=== PATIENT | male | born 1945 | race Hispanic/Latino ===

== ENCOUNTER 2017-12-30 22:24 | Inpatient (IN) | payer MEDICARE ==
[2017-12-30 22:25] VITALS: BMI 25.0
[2017-12-30] MEDS ORDERED: Sodium Chloride 0.9% 1,000 ML IV STA (23:44)
--- NOTE | 2017-12-30 23:50 | C.PDOC ---
History Of Present Illness 72 year old male with a PMHx of CAD s/p CABG presents to the ER after having two syncopal episodes today. Patient states he had two episodes in which he had mild headache with tingling in his toes and blacking out. He denies fall or trauma during either time as well as symptoms of chest pain, SOB, nausea, vomiting, or bloody/black stools. Patient has a Hx of LOC years ago after which he underwent CABG. PMD is Dr. 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 Time Seen by Provider: 12/30/17 23:07 Chief Complaint (Nursing): Headache History Per: Patient History/Exam Limitations: no limitations Onset/Duration Of Symptoms: Hrs Current Symptoms Are (Timing): Still Present Recent travel outside of the [place]: No Past Medical History Reviewed: Historical Data, Nursing Documentation, Vital Signs Vital Signs: Last Vital Signs Temp 97.8 F 12/30/17 22:37 Pulse 61 12/30/17 22:37 Resp 18 12/30/17 22:37 BP 169/91 H 12/30/17 22:37 Pulse Ox 99 12/30/17 22:37 - Medical History PMH: CAD Surgical History: CABG (12 YEARS AGO) - [facility] Procedures CORONAR ARTERIOGR-2 CATH (10/18/12) LEFT HEART CARDIAC CATH (10/18/12) LT HEART ANGIOCARDIOGRAM (10/18/12) OTH NONOPER CARD AND VASC MEASURE (10/18/12) Family History: States: Unknown Family Hx - Social History Hx Tobacco Use: No Hx Alcohol Use: No Hx Substance Use: No Review Of Systems Except As Marked, All Systems Reviewed And Found Negative. Neurological: Positive for: Headache, Other (Tingling to toes, Syncope) Physical Exam - Physical Exam Additional Physical Exam Comments: Constitutional: No acute distress. Head: Normocephalic. Atraumatic. Eyes: PERRL. ENT: Moist mucous membranes. Neck: Supple. Cardiovascular: Regular rate. Radial pulse 2+ bilaterally. Chest: No tenderness. Respiratory: Clear to auscultation bilaterally. GI: Soft. Nontender. Nondistended. Back: No CVA tenderness. Musculoskeletal: No tenderness or swelling of extremities. Skin: Midline sternotomy scar. Neurologic: Alert, no focal deficit. ED Course And Treatment - Laboratory Results Result Diagrams: 12/31/17 00:18 12/31/17 00:18 O2 Sat by Pulse Oximetry: 99 (Room air) Pulse Ox Interpretation: Normal Medical Decision Making Medical Decision Making: EKG: NSR 60, no ST elevation CXR no acute disease. Trop negative. Dr. Johnson covering for Dr. Hazel accepts patient to his service. Disposition - Disposition Disposition: HOSPITALIZED Disposition Time: 01:25 Condition: GUARDED Forms: [facility] (Sing[place]an) - Clinical Impression Clinical Impression: Syncope, Hx of CABG - Scribe Statement The provider has reviewed the documentation as recorded by the Scribe Neo Boothe All medical record entries made by the Scribe were at my direction and personally dictated by me. I have reviewed the chart and agree that the record accurately reflects my personal performance of the history, physical exam, medical decision making, and the department course for this patient. I have also personally directed, reviewed, and agree with the discharge instructions and disposition.
[2017-12-31 00:25] LABS: BASO % 0.4 % (0.0-2.0); EOS % 0.2 % (0.0-4.0); HEMOGLOBIN 13.1 g/dL (12.0-18.0); LYMPH # 1.1 K/uL (1.0-4.3); LYMPH % 13.5 % (20.0-40.0); MEAN CORPUSCULAR HEMOGLOBIN 30.6 pg (27.0-31.0); MEAN PLATELET VOLUME 8.8 fL (7.2-11.7); MONO # 0.4 K/uL (0.0-0.8); MONO % 4.7 % (0.0-10.0); NEUT # 6.5 K/uL (1.8-7.0); NEUT % 81.2 % (50.0-75.0); NRBC % 0.1 % (0.0-2.0); RBC 4.27 Mil/uL (4.40-5.90); RED CELL DISTRIBUTION WIDTH 14.8 % (11.5-14.5); WHITE BLOOD COUNT 7.9 K/uL (4.8-10.8)
[2017-12-31 00:41] LABS: ALB/GLOB RATIO 1.4 (1.0-2.1); ALBUMIN 4.1 g/dL (3.5-5.0); ALT/SGPT 27 U/L (21-72); AST/SGOT 27 U/L (17-59); BLOOD UREA NITROGEN 19 mg/dL (9-20); CALCIUM 9.4 mg/dl (8.6-10.4); GFR NON-AFRICAN AMERICAN > 60
[2017-12-31 00:53] LABS: CK-MB 3.16 ng/mL (0.0-3.38)
--- NOTE | 2017-12-31 08:39 | RAD ---
Date of service: 12/31/2017 HISTORY: r/o PNA COMPARISON: Chest radiographs 06/21/2013. FINDINGS: LUNGS: No acute pulmonary disease. Pleural or parenchymal calcifications are reiterated the mid to inferior left hemithorax laterally. PLEURA: No significant pleural effusion identified, no pneumothorax apparent. CARDIOVASCULAR: Cardiomegaly appears stable. No pulmonary vascular congestion. Post CABG changes are again identified including sternotomy wires and mediastinal surgical clips. Aortic arch atherosclerotic calcifications noted. OSSEOUS STRUCTURES: No significant abnormalities. VISUALIZED UPPER ABDOMEN: Normal. OTHER FINDINGS: None. IMPRESSION: No interval acute cardiopulmonary disease appreciable. Stable cardiomegaly. No pulmonary vascular congestion.
--- NOTE | 2017-12-31 09:59 | CP.PCM.CON ---
History of Present Illness - History of Present Illness History of Present Illness: Very pleasant and active gentleman who reports that he has occasional episodes (2x per year) of short lasting (days) of dizziness and SHORT. 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 He feels pre-syncope but h as never had LOC, fall or trauma. denies: palpitation, CP, diaphoresis, leg edema, SOB, fevers, chills or visual complaints. denies: change in eating habits, URI sx's Reports episode of L. 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 Past Patient History - Infectious Disease Hx of Infectious Diseases: None - Past Medical History & Family History Past Medical History?: Yes - Past Social History Smoking Status: Never Smoked - MUSCULOSKELETAL/RHEUMATOLOGICAL Hx Falls: No - PSYCHIATRIC Hx Substance Use: No - SURGICAL HISTORY Hx Coronary Artery Bypass Graft: Yes (12 YEARS AGO) - ANESTHESIA Hx Anesthesia: Yes Hx Anesthesia Reactions: No Meds Allergies/Adverse Reactions: Allergies Allergy/AdvReac Type Severity Reaction Status Date / Time No Known Allergies Allergy Verified 12/30/17 22:43 - Medications Medications: Current Medications Aspirin (Aspirin) 325 mg PO DAILY [facility] Clopidogrel Bisulfate (Plavix) 75 mg PO DAILY [facility] Enoxaparin Sodium (Lovenox) 40 mg SC DAILY [facility] Famotidine (Pepcid) 20 mg PO BID [facility] Sodium Chloride (Sodium Chloride 0.9%) 1,000 mls @ 75 mls/hr IV .[id number] STA Stop: 12/31/17 13:03 Last Admin: 12/31/17 00:30 Dose: 75 mls/hr Physical Exam - Constitutional Appears: No Acute Distress - Head Exam Head Exam: ATRAUMATIC, NORMAL INSPECTION, NORMOCEPHALIC - Eye Exam Eye Exam: EOMI, Normal appearance, PERRL - ENT Exam ENT Exam: Mucous Membranes Moist, Normal Oropharynx - Respiratory Exam Respiratory Exam: Clear to Auscultation Bilateral, NORMAL BREATHING PATTERN. absent: Rhonchi, Wheezes - Cardiovascular Exam Cardiovascular Exam: REGULAR RHYTHM, +S1, +S2. absent: Gallop, +S4, Systolic Murmur - GI/Abdominal Exam GI & Abdominal Exam: Normal Bowel Sounds, Soft. absent: Tenderness - Extremities Exam Extremities exam: Positive for: normal inspection, pedal pulses present. Negative for: calf tenderness, pedal edema - Back Exam Back exam: absent: CVA tenderness (L), CVA tenderness (R) - Neurological Exam Neurological exam: Alert, CN II-XII Intact, Oriented x3 - Psychiatric Exam Psychiatric exam: Normal Affect, Normal Mood - Skin Skin Exam: Normal Color, Warm Results - Vital Signs Recent Vital Signs: Last Vital Signs Temp 98.6 F 12/31/17 07:00 Pulse 97 H 12/31/17 07:00 Resp 18 12/31/17 07:00 BP 114/77 12/31/17 07:00 Pulse Ox 96 12/31/17 07:00 - Labs Result Diagrams: 12/31/17 00:18 12/31/17 00:18 Labs: Laboratory Results - last 24 hr 12/31/17 12/31/17 00:18 00:18 WBC 7.9 RBC 4.27 L Hgb 13.1 Hct 38.4 MCV 90.0 MCH 30.6 MCHC 34.0 RDW 14.8 H Plt Count 193 MPV 8.8 Neut % (Auto) 81.2 H Lymph % (Auto) 13.5 L [place] % (Auto) 4.7 Eos % (Auto) 0.2 Baso % (Auto) 0.4 Neut # (Auto) 6.5 Lymph # (Auto) 1.1 [place] # (Auto) 0.4 Eos # (Auto) 0.0 Baso # (Auto) 0.0 Sodium 139 Potassium 3.8 Chloride 105 Carbon Dioxide 25 Anion Gap 12 BUN 19 Creatinine 0.8 Est GFR ( Amer) > 60 Est GFR (Non-Af Amer) > 60 Random Glucose 121 H Calcium 9.4 Total Bilirubin 0.5 AST 27 ALT 27 Alkaline Phosphatase 69 Total Creatine Kinase 183 H CK-MB (Mass) 3.16 Troponin I < 0.0120 Total Protein 7.0 Albumin 4.1 Globulin 2.9 Albumin/Globulin Ratio 1.4 - EKG Data EKG Interpreted by: Myself EKG shows normal: Sinus rhythm Assessment & Plan - Assessment and Plan (Free Text) Assessment: Acute problems: :: Dizziness Symptoms lack characteristics for arrythmia or cardiac illness, possible dehydration, vertigo Will order: echo to evaluate cardiac structure and function hydration, DVT prophylaxis, PT to assess gait Can consider neuro eval. Consider carotid doppler :: CAD - Hx of CABG 2005 - images reviewed by me: EKG; NSR, no acute ischemic changes - troponin initial negative, no concern for angina, active CAD or systolic HF - f/u echo to eval cardiac structure and function Add statin i.e crestor 10 for now, titrate for LDL near 70 cont ASA :: HTN - No chronic hx reported - BP is mod/high - suggest Losartan 25-50 mg daily and re-eval need for additional
[2017-12-31 11:26] LABS: BASO % 0.3 % (0.0-2.0); EOS % 0.3 % (0.0-4.0); LYMPH # 1.7 K/uL (1.0-4.3); MEAN CORPUSCULAR HEMOGLOBIN 30.2 pg (27.0-31.0); MEAN CORPUSCULAR HGB CONC 33.6 g/dL (33.0-37.0); MEAN PLATELET VOLUME 8.8 fL (7.2-11.7); MONO # 0.4 K/uL (0.0-0.8); MONO % 5.7 % (0.0-10.0); NEUT # 5.4 K/uL (1.8-7.0); NEUT % 70.7 % (50.0-75.0); RBC 4.29 Mil/uL (4.40-5.90); RED CELL DISTRIBUTION WIDTH 15.1 % (11.5-14.5); WHITE BLOOD COUNT 7.6 K/uL (4.8-10.8)
[2017-12-31] MEDS: Enoxaparin 40 mg Syringe SC SCH (12:24)
--- NOTE | 2017-12-31 17:50 | CP.PCM.HP ---
Past Patient History - Infectious Disease Hx of Infectious Diseases: None - Past Medical History & Family History Past Medical History?: Yes - Past Social History Smoking Status: Never Smoked - CARDIAC Hx Cardiac Disorders: Yes (CAD) - MUSCULOSKELETAL/RHEUMATOLOGICAL Hx Falls: No - PSYCHIATRIC Hx Substance Use: No - SURGICAL HISTORY Hx Coronary Artery Bypass Graft: Yes (12 YEARS AGO) - ANESTHESIA Hx Anesthesia: Yes Hx Anesthesia Reactions: No Meds Allergies/Adverse Reactions: Allergies Allergy/AdvReac Type Severity Reaction Status Date / Time No Known Allergies Allergy Verified 12/30/17 22:43 Physical Exam - Constitutional Appears: Well - Head Exam Head Exam: ATRAUMATIC, NORMAL INSPECTION, NORMOCEPHALIC - Eye Exam Eye Exam: EOMI, Normal appearance, PERRL Pupil Exam: NORMAL ACCOMODATION, PERRL - ENT Exam ENT Exam: Mucous Membranes Moist, Normal Exam - Neck Exam Neck exam: Positive for: Normal Inspection - Respiratory Exam Respiratory Exam: Decreased Breath Sounds - Cardiovascular Exam Cardiovascular Exam: REGULAR RHYTHM, +S1, +S2 - GI/Abdominal Exam GI & Abdominal Exam: Diminished Bowel Sounds, Soft - Rectal Exam Rectal Exam: Deferred Results - Vital Signs Recent Vital Signs: Last Vital Signs Temp 98.1 F 12/31/17 15:00 Pulse 63 12/31/17 15:00 Resp 20 12/31/17 15:00 BP 161/68 H 12/31/17 15:00 Pulse Ox 97 12/31/17 15:00 - Labs Result Diagrams: 12/31/17 11:12 12/31/17 00:18 Labs: Laboratory Results - last 24 hr 12/31/17 12/31/17 12/31/17 00:18 00:18 11:12 WBC 7.9 RBC 4.27 L Hgb 13.1 Hct 38.4 MCV 90.0 MCH 30.6 MCHC 34.0 RDW 14.8 H Plt Count 193 MPV 8.8 Neut % (Auto) 81.2 H Lymph % (Auto) 13.5 L [place] % (Auto) 4.7 Eos % (Auto) 0.2 Baso % (Auto) 0.4 Neut # (Auto) 6.5 Lymph # (Auto) 1.1 [place] # (Auto) 0.4 Eos # (Auto) 0.0 Baso # (Auto) 0.0 Sodium 139 Potassium 3.8 Chloride 105 Carbon Dioxide 25 Anion Gap 12 BUN 19 Creatinine 0.8 Est GFR ( Amer) > 60 Est GFR (Non-Af Amer) > 60 Random Glucose 121 H Calcium 9.4 Total Bilirubin 0.5 AST 27 ALT 27 Alkaline Phosphatase 69 Total Creatine Kinase 183 H CK-MB (Mass) 3.16 Troponin I < 0.0120 < 0.0120 Total Protein 7.0 Albumin 4.1 Globulin 2.9 Albumin/Globulin Ratio 1.4 12/31/17 11:12 WBC 7.6 RBC 4.29 L Hgb 13.0 Hct 38.6 MCV 90.0 MCH 30.2 MCHC 33.6 RDW 15.1 H Plt Count 201 MPV 8.8 Neut % (Auto) 70.7 Lymph % (Auto) 23.0 [place] % (Auto) 5.7 Eos % (Auto) 0.3 Baso % (Auto) 0.3 Neut # (Auto) 5.4 Lymph # (Auto) 1.7 [place] # (Auto) 0.4 Eos # (Auto) 0.0 Baso # (Auto) 0.0 Sodium Potassium Chloride Carbon Dioxide Anion Gap BUN Creatinine Est GFR ( Amer) Est GFR (Non-Af Amer) Random Glucose Calcium Total Bilirubin AST ALT Alkaline Phosphatase Total Creatine Kinase CK-MB (Mass) Troponin I Total Protein Albumin Globulin Albumin/Globulin Ratio
--- NOTE | 2017-12-31 21:04 | CARD ---
APPROVED REPORT Date of service: 12/31/2017 EXAM: Two-dimensional and M-mode echocardiogram with Doppler and color Doppler. Other Information Quality : GoodRhythm : INDICATION Dizziness and Vertigo Cardiac Disease: CAD Syncope 2D DIMENSIONS IVSd1.3 (0.7-1.1cm)LVDd5.6 (3.9-5.9cm) PWd1.1 (0.7-1.1cm)LA Kejwqg51 (18-58mL) LVDs3.9 (2.5-4.0cm)FS (%) 29.7 % LVEF (%)56.2 (>50%)LVEF (Faith's)52.46 % M-Mode DIMENSIONS Left Atrium (MM)4.31 (2.5-4.0cm)IVSd1.09 (0.7-1.1cm) Aortic Root3.54 (2.2-3.7cm)LVDd5.89 (4.0-5.6cm) Aortic Cusp Exc.2.03 (1.5-2.0cm)PWd1.05 (0.7-1.1cm) FS (%) 32 %LVDs4.03 (2.0-3.8cm) LVEF (%)59 (>50%) Mitral Valve MV E Vclkqzph92.5cm/sMV A Vncxroyr13.5cm/sE/A ratio0.8 TDI Lateral E' Peak V5.25cm/sMedial E' Peak V5.19cm/sE/Lateral E'12.9 E/Medial E'13.0 Tricuspid Valve TR Peak [id number]/sTR Peak Gr.94huIkJQHI27ycEw LEFT VENTRICLE The left ventricle is normal size. There is normal left ventricular wall thickness. The left ventricular function is normal. The left ventricular ejection fraction is within the normal range. There is normal LV segmental wall motion. Transmitral Doppler flow pattern is abnormal. RIGHT VENTRICLE The right ventricle is normal size. ATRIA The left atrium is mildly dilated. The right atrium size is normal. AORTIC VALVE There is trace aortic regurgitation. MITRAL VALVE Mitral regurgitation is mild. TRICUSPID VALVE There is mild tricuspid regurgitation. <Conclusion> Normal LV systolic fucntion. Diastolic dysfucntion. Dilated LA. Trace AR. Mild MR. Mild TR.
[2018-01-01 07:11] LABS: TROPONIN I 0.019 ng/mL (0.00-0.120)
--- NOTE | 2018-01-01 07:17 | CP.PCM.CON ---
History of Present Illness - History of Present Illness History of Present Illness: CONSULT DICTATED MULTIPLE EPISODE OF SYNCOPE >5 TIMES IN HIS LIFE TIME ALL SYMPTOMS ASSOCIATING WITH AURA POST EVENT CONFUSION ?? PARTIAL COMPLEX WITH GENERALIZATION SEIZURE MRI BRAIN /EEG/ CAROTID BLOOD WORK UP PER ORDER Sz PRECAUTION NEEDS AVEEG AN OP. Past Patient History - Infectious Disease Hx of Infectious Diseases: None - Past Medical History & Family History Past Medical History?: Yes - Past Social History Smoking Status: Never Smoked - CARDIAC Hx Cardiac Disorders: Yes (CAD) - MUSCULOSKELETAL/RHEUMATOLOGICAL Hx Falls: No - PSYCHIATRIC Hx Substance Use: No - SURGICAL HISTORY Hx Coronary Artery Bypass Graft: Yes (12 YEARS AGO) - ANESTHESIA Hx Anesthesia: Yes Hx Anesthesia Reactions: No Meds Allergies/Adverse Reactions: Allergies Allergy/AdvReac Type Severity Reaction Status Date / Time No Known Allergies Allergy Verified 12/30/17 22:43 - Medications Medications: Current Medications Aspirin (Aspirin) 325 mg PO DAILY ON LICENSE OF [facility] Last Admin: 12/31/17 12:24 Dose: 325 mg Clopidogrel Bisulfate (Plavix) 75 mg PO DAILY ON LICENSE OF [facility] Last Admin: 12/31/17 12:24 Dose: 75 mg Enoxaparin Sodium (Lovenox) 40 mg SC DAILY ON LICENSE OF [facility] Last Admin: 12/31/17 12:24 Dose: 40 mg Famotidine (Pepcid) 20 mg PO BID ON LICENSE OF [facility] Last Admin: 12/31/17 18:07 Dose: 20 mg Results - Vital Signs Recent Vital Signs: Last Vital Signs Temp 97.6 F 01/01/18 05:18 Pulse 66 01/01/18 05:18 Resp 20 01/01/18 05:18 BP 144/74 01/01/18 05:18 Pulse Ox 96 01/01/18 05:18 - Labs Result Diagrams: 12/31/17 11:12 12/31/17 00:18 Labs: Laboratory Results - last 24 hr 12/31/17 12/31/17 01/01/18 11:12 11:12 06:31 WBC 7.6 RBC 4.29 L Hgb 13.0 Hct 38.6 MCV 90.0 MCH 30.2 MCHC 33.6 RDW 15.1 H Plt Count 201 MPV 8.8 Neut % (Auto) 70.7 Lymph % (Auto) 23.0 [place] % (Auto) 5.7 Eos % (Auto) 0.3 Baso % (Auto) 0.3 Neut # (Auto) 5.4 Lymph # (Auto) 1.7 [place] # (Auto) 0.4 Eos # (Auto) 0.0 Baso # (Auto) 0.0 Troponin I < 0.0120 0.0190
[2018-01-01 09:00] LABS: PROLACTIN 35.8 ng/mL (3.7-17.9)
[2018-01-01] MEDS: Enoxaparin 40 mg Syringe SC SCH (09:06)
[2018-01-01 12:14] LABS: FREE T4 1.05 ng/dL (0.78-2.19)
--- NOTE | 2018-01-01 12:21 | VASCLAB ---
Date of service: 01/01/2018 PROCEDURE: Carotid Duplex Exam. HISTORY: stenosis COMPARISON: None available. TECHNIQUE: Grayscale and duplex Doppler evaluation of the cervical carotid and vertebral arteries were performed. The common carotid, carotid bifurcations and cervical Internal Carotid Artery (ICA) and proximal External Carotid Artery (ECA) were evaluated. The vertebral arteries were evaluated for gross patency and flow direction. Report prepared by agricultural engineering technologist. FINDINGS: RIGHT CAROTID ARTERIES: 1. Common Carotid Artery: No significant focal plaque formation of the right common carotid artery. Maximum Peak Systolic velocity: 96 cm/sec: End-diastolic velocity 19 cm/sec. 2. Carotid Bifurcation: Heterogeneous plaque formation. Maximum Peak Systolic velocity: 100 cm/sec: End-diastolic velocity 21 cm/sec. 3. Internal Carotid Artery: Moderate plaque formation of the right proximal ICA which does not results in hemodynamically significant stenosis. Plaque description: Heterogeneous 3.1. Proximal Segment: Peak systolic velocity 003 cm/sec: End-diastolic velocity 31 cm/sec - % stenosis 0-15% 3.2. Middle Segment: Peak systolic velocity 109 cm/sec: End-diastolic velocity 29 cm/sec - % stenosis 0-15% 3.3. Distal Segment: Peak systolic velocity 111 cm/sec: End-diastolic velocity 31 cm/sec - % stenosis 0-15% 4. External Carotid Artery: No significant focal plaque formation. Peak systolic velocity 186 cm/sec 5. ICA/CCA Ratio: 1.2 LEFT CAROTID ARTERIES: 1. Common Carotid Artery: No significant focal plaque formation of the left common carotid artery. Maximum Peak Systolic velocity: 111 cm/sec: End-diastolic velocity 12 cm/sec. 2. Carotid Bifurcation: Calcific plaque formation. Maximum Peak Systolic velocity: 101 cm/sec: End-diastolic velocity 10 cm/sec. 3. Internal Carotid Artery: Moderate plaque formation of the left proximal ICA which does not results in hemodynamically significant stenosis. Plaque description: Calcific 3.1. Proximal Segment: Peak systolic velocity 130 cm/sec: End-diastolic velocity 18 cm/sec - % stenosis 0-15% 3.2. Middle Segment: Peak systolic velocity 102 cm/sec: End-diastolic velocity 18 cm/sec - % stenosis 0-15% 3.3. Distal Segment: Peak systolic velocity 88 cm/sec: End-diastolic velocity 23 cm/sec - % stenosis 0-15% 4. External Carotid Artery: No significant focal plaque formation. Peak systolic velocity 130 cm/sec 5. ICA/CCA Ratio: 1.2 VERTEBRAL ARTERIES: 1. Right Vertebral Artery: The right vertebral artery flow direction is antegrade. 2. Left Vertebral Artery: The left vertebral artery flow direction is antegrade. OTHER FINDINGS: 1. Right Brachial Blood pressure: 160 mmHg. 2. Left Brachial Blood pressure: 162 mmHg. Impression RIGHT: Duplex scan does not suggest hemodynamically significant stenosis of the right extracranial carotid arteries. LEFT: Duplex scan does not suggest hemodynamically significant stenosis of the left extracranial carotid arteries.
[2018-01-01] MEDS ORDERED: Gadodiamide 287 MG/ML VIAL (15ML) IV ONE (12:51)
--- NOTE | 2018-01-01 14:15 | MRI ---
Date of service: 01/01/2018 PROCEDURE: MRI BRAIN WITH AND WITHOUT CONTRAST HISTORY: attention at mesial temp lobe - vol analysis hippo COMPARISON: Noncontrast head CT from 10/17/2012 her. TECHNIQUE: Multiplanar, multisequence MR images of the brain were obtained with and without intravenous contrast enhancement. 14 mL Omniscan was injected intravenously. FINDINGS: HEMORRHAGE: None DWI: No evidence of an acute or early subacute infarction. BRAIN PARENCHYMA: There are mild chronic microangiopathic changes. There is no mass, mass effect or abnormal extra-axial fluid collection. There is no territorial infarction. The midline sagittal structures are normal. The hippocampi are symmetric, have normal signal intensity without evidence for mesial temporal sclerosis. ENHANCEMENT: No abnormal intracranial enhancement. VENTRICLES: There is mild age-related global parenchymal volume loss and proportionate enlargement of the ventricles and cortical sulci. There are prominent perivascular spaces in the basal ganglia And thalami. CRANIUM: There is normal bone marrow signal pattern. ORBITS: Grossly unremarkable. PARANASAL SINUSES/MASTOIDS: There is mild mucosal thickening in the frontal sinuses and ethmoid air cells. The remaining included paranasal sinuses and mastoid air cells are clear. VASCULAR SYSTEM: There are normal signal voids in the larger intracranial arteries. OTHER FINDINGS: None . IMPRESSION: No acute intracranial abnormality. Mild chronic microangiopathic changes and mild age-related global parenchymal volume loss. No evidence for mesial temporal sclerosis or mass in the medial temporal lobe.
--- NOTE | 2018-01-01 14:34 | CP.PCM.PN ---
Subjective - Date & Time of Evaluation Date of Evaluation: 01/01/18 Time of Evaluation: 14:31 - Subjective Subjective: No further dizziness No CP or SOB Normal gait Objective - Vital Signs/Intake and Output Vital Signs (last 24 hours): Temp Pulse Resp BP Pulse Ox 98.1 F 72 18 171/72 H 98 01/01/18 07:20 01/01/18 11:45 01/01/18 07:20 01/01/18 07:20 01/01/18 07:20 - Medications Medications: Current Medications Aspirin (Aspirin) 325 mg PO DAILY [facility] Last Admin: 01/01/18 09:06 Dose: 325 mg Clopidogrel Bisulfate (Plavix) 75 mg PO DAILY [facility] Last Admin: 01/01/18 09:06 Dose: 75 mg Enoxaparin Sodium (Lovenox) 40 mg SC DAILY [facility] Last Admin: 01/01/18 09:06 Dose: 40 mg Famotidine (Pepcid) 20 mg PO BID [facility] Last Admin: 01/01/18 09:06 Dose: 20 mg - Labs Labs: 12/31/17 11:12 12/31/17 00:18 - Constitutional Appears: No Acute Distress - Head Exam Head Exam: ATRAUMATIC, NORMAL INSPECTION, NORMOCEPHALIC - Eye Exam Eye Exam: EOMI, Normal appearance - ENT Exam ENT Exam: Mucous Membranes Moist, Normal Oropharynx - Neck Exam Neck Exam: Full ROM, Normal Inspection. absent: Tenderness, Thyromegaly - Respiratory Exam Respiratory Exam: Clear to Ausculation Bilateral, NORMAL BREATHING PATTERN. absent: Rhonchi, Wheezes - Cardiovascular Exam Cardiovascular Exam: REGULAR RHYTHM, +S1, +S2. absent: +S4, Murmur - GI/Abdominal Exam GI & Abdominal Exam: Soft, Normal Bowel Sounds. absent: Tenderness - Extremities Exam Extremities Exam: Full ROM, Normal Capillary Refill, Normal Inspection. absent: Calf Tenderness, Pedal Edema - Neurological Exam Neurological Exam: Alert, Awake, Oriented x3 Neuro motor strength exam: Left Upper Extremity: 5, Right Upper Extremity: 5, Left Lower Extremity: 5, Right Lower Extremity: 5 - Psychiatric Exam Psychiatric exam: Normal Affect, Normal Mood - Skin Skin Exam: Normal Color, Warm Assessment and Plan - Assessment and Plan (Free Text) Assessment: Acute problems: :: Dizziness Symptoms lack characteristics for arrythmia or cardiac illness, possible dehydration, vertigo Will order: echo images viewed by me: Normal LVEF, age related diastolic dysfunction hydration, DVT prophylaxis, PT to assess gait Carotid doppler: shows no hemodynamically sig stenosis and MRI reported no acute changes :: CAD - Hx of CABG 2005 - images reviewed by me: EKG; NSR, no acute ischemic changes - troponin initial negative, no concern for angina, active CAD or systolic HF Add statin i.e crestor 10 for now, titrate for LDL near 70 cont ASA :: HTN - No chronic hx reported - BP is mod/high - suggest Losartan 25-50 mg daily and re-eval need for additional Per cardiac: ok to d/c home: f/u with me as outpatient. f/u any further Neuro RECC.
--- NOTE | 2018-01-01 22:30 | CP.PCM.PN ---
Subjective - Date & Time of Evaluation Date of Evaluation: 01/01/18 Time of Evaluation: 10:45 - Subjective Subjective: clinically same Objective - Vital Signs/Intake and Output Vital Signs (last 24 hours): Temp Pulse Resp BP Pulse Ox 97.5 F L 68 20 161/77 H 97 01/01/18 15:00 01/01/18 16:00 01/01/18 15:00 01/01/18 15:00 01/01/18 15:00 - Medications Medications: Current Medications Aspirin (Aspirin) 325 mg PO DAILY [facility] Last Admin: 01/01/18 09:06 Dose: 325 mg Clopidogrel Bisulfate (Plavix) 75 mg PO DAILY [facility] Last Admin: 01/01/18 09:06 Dose: 75 mg Enoxaparin Sodium (Lovenox) 40 mg SC DAILY [facility] Last Admin: 01/01/18 09:06 Dose: 40 mg Famotidine (Pepcid) 20 mg PO BID [facility] Last Admin: 01/01/18 17:48 Dose: 20 mg - Labs Labs: 12/31/17 11:12 12/31/17 00:18
[2018-01-02] MEDS: Enoxaparin 40 mg Syringe SC SCH (10:03)
--- NOTE | 2018-01-02 15:04 | CP.PCM.PN ---
Subjective - Date & Time of Evaluation Date of Evaluation: 01/02/18 Time of Evaluation: 10:15 - Subjective Subjective: clinically same Objective - Vital Signs/Intake and Output Vital Signs (last 24 hours): Temp Pulse Resp BP Pulse Ox 97.3 F L 80 18 143/72 97 01/02/18 07:30 01/02/18 12:43 01/02/18 07:30 01/02/18 07:30 01/02/18 07:30 Intake and Output: 01/02/18 01/02/18 06:59 18:59 Intake Total 460 Balance 460 - Medications Medications: Current Medications Aspirin (Aspirin) 325 mg PO DAILY [facility] Last Admin: 01/02/18 10:02 Dose: 325 mg Clopidogrel Bisulfate (Plavix) 75 mg PO DAILY [facility] Last Admin: 01/02/18 10:03 Dose: 75 mg Enoxaparin Sodium (Lovenox) 40 mg SC DAILY [facility] Last Admin: 01/02/18 10:03 Dose: 40 mg Famotidine (Pepcid) 20 mg PO BID [facility] Last Admin: 01/02/18 10:03 Dose: 20 mg - Labs Labs: 12/31/17 11:12 12/31/17 00:18
[2018-01-02 15:44] VITALS: RESP 20
[2018-01-03] MEDS: Enoxaparin 40 mg Syringe SC SCH (09:08)
--- NOTE | 2018-01-03 18:51 | CP.PCM.PN ---
Subjective - Date & Time of Evaluation Date of Evaluation: 01/03/18 Time of Evaluation: 11:00 - Subjective Subjective: clinically same Objective - Vital Signs/Intake and Output Vital Signs (last 24 hours): Temp Pulse Resp BP Pulse Ox 98.2 F 78 20 111/69 96 01/03/18 14:00 01/03/18 16:05 01/03/18 14:00 01/03/18 14:00 01/03/18 14:00 Intake and Output: 01/03/18 01/03/18 06:59 18:59 Intake Total 120 380 Balance 120 380 - Medications Medications: Current Medications Aspirin (Aspirin) 325 mg PO DAILY [facility] Last Admin: 01/03/18 09:08 Dose: 325 mg Clopidogrel Bisulfate (Plavix) 75 mg PO DAILY [facility] Last Admin: 01/03/18 09:08 Dose: 75 mg Enoxaparin Sodium (Lovenox) 40 mg SC DAILY [facility] Last Admin: 01/03/18 09:08 Dose: 40 mg Famotidine (Pepcid) 20 mg PO BID [facility] Last Admin: 01/03/18 17:42 Dose: 20 mg - Labs Labs: 12/31/17 11:12 12/31/17 00:18 - Constitutional Appears: Well - Head Exam Head Exam: ATRAUMATIC, NORMAL INSPECTION, NORMOCEPHALIC - Eye Exam Eye Exam: EOMI, Normal appearance, PERRL Pupil Exam: NORMAL ACCOMODATION, PERRL - ENT Exam ENT Exam: Mucous Membranes Moist, Normal Exam - Neck Exam Neck Exam: Full ROM, Normal Inspection. absent: Lymphadenopathy - Respiratory Exam Respiratory Exam: Decreased Breath Sounds - Cardiovascular Exam Cardiovascular Exam: REGULAR RHYTHM, +S1, +S2 - GI/Abdominal Exam GI & Abdominal Exam: Soft, Diminished Bowel Sounds - Rectal Exam Rectal Exam: Deferred
--- NOTE | 2018-01-04 06:59 | PN ---
DATE: 01/03/2018 TIME OF EVALUATION: 2 p.m. CHIEF COMPLAINT: Syncopal attack. SUBJECTIVE: The patient is asymptomatic at present. No new episodes of neurological event during his hospitalization. Examination is unchanged. WORKUP: Carotid Doppler does not show any significant stenosis. MRI of the brain does not show any ischemic process. No mesial temporal sclerosis or hippocampal atrophy. His EEG will be reviewed. ASSESSMENT AND PLAN: If medically stable, the patient can be discharged and should have followup with me as outpatient. The patient may need ambulatory electroencephalogram. In the meantime, the patient is advised not to drive until the workup is completed. Fei Beyer MD
--- NOTE | 2018-01-04 06:59 | CON ---
DATE: 01/01/2018 LOCATION: The patient's room number 653, bed B. REASON FOR THE CONSULTATION: Syncopal attack. ATTENDING PHYSICIAN: Glory Johnson MD DATE OF EVALUATION: 01/01/2018. TIME OF EVALUATION: 07:10 a.m. REASON FOR CONSULTATION: The patient was brought into [facility], [place] with a history of recurrent episode of recent syncopal attack. From neurological point of view, I was called into evaluate him for further management. HISTORY OF PRESENT ILLNESS: The patient is a 72-year-old right-handed male, in usual state of health, brought into [facility], [place] with history of two recent episodes of passing out spell. As per the history, he claims that he had multiple episodes of syncopal attack in the past, two recent episodes prior to the multiple episodes, almost five episodes in his lifetime. These episodes are also associating even in lying down also. He knows the symptoms are coming in, manifesting as some nauseous feeling. Next thing he realized he passed out. On few episodes, he tried to hold the object to sit down. No association with bowel and bladder incontinence or bitten tongue. However, he wakes up with some confusion. No focal weakness noted following the episodes. At present, no history of headache, no history of visual or bulbar dysfunction, no focal weakness. PAST MEDICAL HISTORY: Hypertension, dyslipidemia, coronary artery disease. PERSONAL HISTORY: Denies smoking or alcohol use. ALLERGIES: NO KNOWN ALLERGIES. SURGICAL HISTORY: Bypass surgery many years ago. REVIEW OF SYSTEMS: Twelve-point system being reviewed. From neuro, recurrent episode of syncope attack. HOME MEDICATIONS: He is on aspirin, Lovenox, Pepcid, and Plavix. PHYSICAL EXAMINATION: VITAL SIGNS: Blood pressure 144/74, mean artery pressure of 97, respiratory rate 18, pulse rate 66 and irregular, and temperature 97.6. NECK: Supple. No carotid bruit. HEART: Heart sounds regular. CHEST: Fair air entry. EXTREMITIES: No edema in legs. NEUROLOGIC: Mental status examination: He is awake, alert, and oriented to person, place, and time. His speech is clear. Naming, repetition, fluency, comprehension all within normal. No retrograde as well as antegrade amnesia at present. No confabulation. Cranial nerve examination: Visual field intact. Pupils reactive. Extraocular movement normal. No nystagmus. No facial sensory deficit. No facial asymmetry. Hearing is normal. Tongue is midline. Good gag. Motor examination: Outstretched hand with eyes closed. No drift noted. Power is symmetric on either side. Deep tendon reflexes, biceps, brachialis, triceps. Mild asymmetric reflexes noted in his left side to compare with the right side. Both knees are trace. Both ankles are 1+. Plantars are downgoing. Sensory examination: Grossly intact. No cortical sensory loss. Cerebellar functions: Coordination, [id number] test is intact. The Romberg sign negative. Tandem is fair. 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 Considering his age and presenting symptoms, possible [employer] space occupying lesion or previous ischemic process or any anomalies which should be ruled out. WORKUP: EKG normal sinus rhythm. Blood workup: WBC 7.6, hemoglobin 13, hematocrit 38.6, and platelet 201. Sodium 139, potassium 3.8, chloride 105, bicarbonate 25, BUN 90, creatinine 0.8, GFR more than 60, glucose 121. Liver functions are normal. RECOMMENDATIONS: 1. MRI of the brain with contrast to rule out any space occupying lesion. Attention at medial temporal lobe and volumetric analysis of hippocampus. 2. EEG to rule out any paroxysmal activities. 3. Focal slowing. 4. Echocardiogram to rule out any cardiac status associating with this problem. 5. Carotid Doppler to assess the stenosis. 6. Agree with aspirin and Plavix for now. Check her lipid panel. The patient may be benefited with his statin as well. 7. The patient maybe benefited of doing electroencephalogram now and follow up with ambulatory video electroencephalogram to further localizing his pathology electrophysiologically. No antiepileptic drug is needed until the diagnosis is made. The patient's condition is also discussed. Driving options as per DMV have been discussed with the patient. The patient is aware of these issues. Advised not to drive until the workup is completed. Fei Beyer MD
[2018-01-04] MEDS: Enoxaparin 40 mg Syringe SC SCH (10:01)
--- NOTE | 2018-01-04 15:07 | CP.PCM.PN ---
Subjective - Date & Time of Evaluation Date of Evaluation: 01/04/18 Time of Evaluation: 15:06 - Subjective Subjective: PT CLEARED FOR D/C HOME BY DR. LY AND DR. SANDERSON. PT TO F/U WITH IN THE OFFICE; HAD EEG DONE THIS AFTERNOON, RESULTS PENDING AT THIS TIME AND DR. LY CAN DISCUSS RESULTS WITH THE PT UPON F/U. PT TO F/U WITH PMD OR DR. WORLEY IN THE OFFICE WITHIN 5-7 DAYS. NO NEW RX. NO FURTHER ORDERS. -FOLLOW UP WITH DR. Dixon WORLEY IN THE OFFICE WITHIN 5-7 DAYS---CALL THE OFFICE TO MAKE AN APPOINTMENT. -FOLLOW UP WITH DR. LY (NEUROLOGIST) IN THE OFFICE WITHIN 7-10 DAYS---CALL THE OFFICE TO MAKE AN APPOINTMENT. DR. LY WILL DISCUSS WITH YOU THE RESULTS OF YOU "EEG" TEST FROM TODAY; IT TAKES SEVERAL DAYS FOR THE RESULT TO BE IN. -CONTINUE HOME MEDICATIONS USUAL. -NO NEW PRESCRIPTIONS. -PER DR. LY'S RECOMMENDATIONS, NO DRIVING UNTIL YOU FOLLOW UP WITH HIM IN THE OFFICE. -FOR FURTHER QUESTIONS OR CONCERNS, CONTACT DR. WORLEY'S OFFICE. Objective - Vital Signs/Intake and Output Vital Signs (last 24 hours): Temp Pulse Resp BP Pulse Ox 98.3 F 72 20 150/69 97 01/04/18 07:00 01/04/18 12:51 01/04/18 07:00 01/04/18 07:00 01/04/18 07:00 Intake and Output: 01/04/18 01/04/18 06:59 18:59 Intake Total 120 Balance 120 - Medications Medications: Current Medications Aspirin (Aspirin) 325 mg PO DAILY [facility] Last Admin: 01/04/18 10:01 Dose: 325 mg Clopidogrel Bisulfate (Plavix) 75 mg PO DAILY [facility] Last Admin: 01/04/18 10:01 Dose: 75 mg Enoxaparin Sodium (Lovenox) 40 mg SC DAILY [facility] Last Admin: 01/04/18 10:01 Dose: 40 mg Famotidine (Pepcid) 20 mg PO BID [facility] Last Admin: 01/04/18 10:02 Dose: 20 mg - Labs Labs: 12/31/17 11:12 12/31/17 00:18
[2018-01-04 16:19] VITALS: BP 154/80; PULSE 64; TEMP 98.2; O2SAT 95
--- NOTE | 2018-01-05 19:49 | CARD ---
APPROVED REPORT Date of service: 12/30/2017 EKG Measurement Heart [id number] CT [id number] <Conclusion> Normal sinus rhythm Nonspecific ST and T wave abnormality Abnormal ECG
== END 2018-01-04 17:13 | disposition home or self-care (01) | DRG 312 ==
LOC: C.ER 22:24 → C.6T 12-31 01:33
PROVIDERS: ADMIT Internal Medicine Nephrology; ATTEND Internal Medicine Nephrology
DX: R55 Syncope and collapse (principal); G40.209 Localization-related (focal) (partial) symptomatic epilepsy and epileptic syndromes with complex partial seizures, not intractable, without status epilepticus; E78.5 Hyperlipidemia, unspecified; I10 Essential (primary) hypertension; I25.10 Atherosclerotic heart disease of native coronary artery without angina pectoris; Z95.1 Presence of aortocoronary bypass graft; Z79.82 Long term (current) use of aspirin